=== PATIENT | female | born 1970 | race Caucasian/White ===

== ENCOUNTER → 2016-05-31 | Outpatient (CLI) | payer BC | END | disposition home or self-care (01) | LOC: C.PAPS 16:42 | PROVIDERS: ATTEND Obstetrics & Gynecology | DX: Z01.419 Encounter for gynecological examination (general) (routine) without abnormal findings (principal) ==

== ENCOUNTER → 2017-02-14 | Outpatient (CLI) | payer BC ==
[~2017-02-14] MED LIST: GADAVIST IV PRN; PATIENT'S ALLERGY INFO NEEDS ENTERED SCH
--- NOTE | 2017-02-15 12:22 | MAMMOGRAPHY REPORT ---
BREAST MRI OF BOTH BREASTS : 02/14/2017 CLINICAL HISTORY: 46-year-old woman presents for MRI evaluation of both breasts, given family history of breast cancer and dense breasts. She is also overdue for follow-up based on prior MRI findings f rom the 03/17/2016 exam. Also overdue for annual screening mammography. COMPARISON: Comparison is made to exams dated: 04/06/2016 ultrasound, 03/17/2016 breast MRI, and 2015 mammogram - [facility]. TECHNIQUE: Using a 1.5 Telma magnet and dedicated breast coil, multisequence axial images were obtain ed through the breasts. After uneventful IV administration of 6.2 mL of Gadavist, dynamic multiphase contrast-enhanced axial images, and sagittal postcontrast were obtained. Temporal subtraction axial images and 3-D MIP images are provided. Everything was then reviewed on a 3-D workstation, [employer]. FINDINGS: There is moderate background parenchymal enhancement of the breasts, with numerous scattere d enhancing foci bilaterally. When comparing to the prior breast MRI dated 03/17/2016, all of the en hancing foci appear similar in number, shape and distribution, suggesting physiologic background enha ncement. There are also numerous bilateral T2 hyperintense cysts in the breasts. There is ovoid enh ancement in the subareolar left breast, which likely represents physiologic enhancement of an inverte d nipple. The nipple inversion is stable comparing to the prior MRI dated 03/17/2016, and also stabl e mammographically dating back to 2011. There is no evidence of a new suspicious enhancing mass, vamsi picious non-mass enhancement or focal area of architectural distortion bilaterally. Susceptibility a rtifact from a biopsy marker clip is again seen in the upper outer quadrant of the left breast. IMPRESSION: ACR BI-RADS CATEGORY 2: BENIGN Stable breast MRI, without MRI evidence of malignancy. Recommend continuation of annual screening ma mmography schedule an annual breast MRI. It should be noted that the patient is overdue for bilatera l screening mammography, as the last mammogram performed at this institution was June 20, 2015. The patient will receive written notification of the results. Rona Hodgson M.D. 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
== END | disposition home or self-care (01) ==
LOC: C.MRI 13:41
PROVIDERS: ATTEND Nurse Practitioner
DX: Z80.3 Family history of malignant neoplasm of breast (principal)

== ENCOUNTER → 2017-03-30 | Outpatient (CLI) | payer BC ==
--- NOTE | 2017-03-31 15:32 | MAMMOGRAPHY REPORT ---
BILATERAL DIGITAL SCREENING MAMMOGRAM TOMOSYNTHESIS WITH CAD: 03/30/2017 CLINICAL HISTORY: Routine screening. TECHNIQUE: Breast tomosynthesis in addition to standard 2D mammography was performed. Current study was also evaluated with a Computer Aided Detection (CAD) system. COMPARISON: Comparison is made to exams dated: 02/14/2017 breast MRI, 04/06/2016 ultrasound, 06/20/2015 mammogram - [facility], 10/17/2014 mammogram, 08/20/2013 mammogram, and 02/15/2012 mamm ogram. BREAST COMPOSITION: The tissue of both breasts is heterogeneously dense, which may obscure small mas ses. FINDINGS: No suspicious masses, calcifications, or areas of architectural distortion are noted in ei ther breast. There has been no significant interval change compared to prior exams. A biopsy marker clip is again noted within the left upper outer quadrant. Round partially circumscribed and partiall y obscured masses within the right lateral breast are shown to represent cysts on the recent breast M RI. IMPRESSION: ACR BI-RADS CATEGORY 2: BENIGN There is no mammographic evidence of malignancy. A 1 year screening mammogram is recommended. The pa tient will receive written notification of the results. Approximately 10% of breast cancers are not detected with mammography. A negative mammographic report should not delay biopsy if a clinically suggestive mass is present. Zohra Philippe M.D. ah/:03/30/2017 16:34:09 Weight Tester: Roberta BARRIGA)(Alessia), [facility] letter sent: Normal 1/2 BI-RADS Code: ACR BI-RADS Category 2: Benign
== END | disposition home or self-care (01) ==
LOC: C.MAMM 15:51
PROVIDERS: ATTEND Physician Assistant
DX: Z12.31 Encounter for screening mammogram for malignant neoplasm of breast (principal)